=== PATIENT | female | born 2000 | race Two or more races ===

== ENCOUNTER 2025-04-27 11:33 | Outpatient (AMB) | payer BC, MEDICAID, SELFPAY ==
[2025-04-27 11:51] VITALS: BP 109/68; PULSE 76; RESP 16; TEMP 36.6; O2SAT 98; BMI 27.5
--- NOTE | 2025-04-27 11:51 | OBCLNT_ITS ---
Vital Signs 04/27/25 11:51 Height 1.68 m Height Method Stated Weight 77.337 kg Weight Measurement Method Standing Scale BMI 27.5 BP 109/68 Blood Pressure Source Automatic Cuff Blood Pressure Location Left Upper Arm Position Sitting Respiration 16 Pulse 76 Pulse Source Monitor Temp 97.8 F Temp Source Oral Pulse Oximetry (%) 98 Oxygen Delivery Method Room Air Allergies/Home Meds Allergies & Medications Allergies No Known Allergies Allergy (Verified 04/27/25 11:55) Medication Reconciliation azelaic acid 20 % topical cream 1 applic topical BID 30 days #50 grams 04/27/25 [Rx] Intake Visit Data Collection New Patient or Established: Established Patient (seen at [facility] within 3 years) Reason for Visit:: INITIAL CARE Seen by Clinical Staff ONLY (RN/MA): No 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 1. Little interest or pleasure in doing things: not at all 2. Feeling down, depressed, or hopeless: not at all Total score: 0 PHQ-9 3. Trouble falling or staying asleep, or sleeping too much: Not at all 4. Feeling tired or having little energy: Not at all 5. Poor appetite or overeating: Not at all 6. Feeling bad about yourself - or that you are a failure or have let yourself or your family down: Not at all 7. Trouble concentrating on things, such as reading the newspaper or watching television: Not at all 8. Moving or speaking so slowly that other people could have noticed? - Or the opposite - being so fidgety or restless that you have been moving around a lot more than usual: not at all 9. Thoughts that you would be better off or of hurting yourself in some way: Not at all Total score: 0 Source: Developed by Drs. Misael Bustos, Doris Parikh, Mahesh Plascencia and colleagues, with an educational rosina from [employer]. 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 Feel Safe at Home: Yes History of Present Illness HPI Narrative Patient is a 24-year-old [id number] at 8 weeks and 5 days gestation, presenting for her first obstetric visit for a confirmed . She is currently 8 weeks and 5 days gestation based on her last menstrual period of February 18, with an estimated due date of November 25. The patient reports experiencing mild cramps, which she describes as normal and not accompanied by bleeding or spotting. She denies morning sickness but mentions having diarrhea. She had a first-trimester ultrasound on April 18, which showed a gestational age of 7 weeks and 3 days at that time. Regarding medications, she was taking tretinoin for acne when she conceived but stopped upon learning of her . She also mentions being prescribed spironolactone for acne but never took it. She experienced a yeast infection early in and opted for [id number] treatment instead of prescribed medication. The patient reports skin purging after starting vitamins, which resolved when she switched to [id number] prenatals. She is currently using azelaic acid for acne, prescribed by a car body mechanic. She expresses interest in genetic testing, particularly due to her partner's half-sister having Down syndrome. She also inquires about gender determination through blood testing. 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 [employer]: Past Medical History Past Medical History: No Hx Neurological Disorders, No Hx Cardiac Disorders, No Hx Gastrointestinal Disorders, No Hx Renal Disease, No Hx Diabetes Mellitus Type 1 and No Hx Diabetes Mellitus Type 2 OB Initial Visit OB Flowsheet OB Flowsheet Initial Weight: Not Recorded Date -?-?-?-?-?-?-?-?-?-?-?-?- EGA Weight BP Alb Glu CTX Pres Fundal ht FHR Mov Dilation Station Effacement Hx Notes Visit Note 04/27/25 -?-?-?-?-?-?-?-?-?-?-?-?- 9w 5d 77.337 kg 109/68 8w5d IUP with FHR 175, mild cramping without bleeding, diarrhea likely from progesterone/vitamins; remote topical tretinoin use, low risk; acne managed with azelaic acid. Plan: Order labs, NIPT, anatomy scan referral, follow up in 1?2w, continue vitamins, reassure re: tretinoin, prescribe adapalene for acne. Menstrual History Menstrual reliability: definite Flow: normal Menstrual regularity: regular Monthly: Yes Age at menarche: 13 On control pills at conception: No Associated symptoms (LMP): Reports nausea, fatigue and breast tenderness OB History : 1 # of Living Children: 0 Infection History & Risk Evaluation History of STDs: none Genetic Screening & History Genetic Screening/Teratology Counseling - Includes patient, baby's father, or anyone in either family with: 1. Patient's age 35 years or older as of estimated date of delivery: No 2. Thalassemia (Barbadian, Macanese, Mediterranean, or Background); MCV less than 80: No 3. Neural Tube Defect (Meningomyelocele, Spina Bifida, or Anencephaly): No 4. Congenital Heart Defect: No 5. Down Syndrome: No 6. Tyrell-Sachs (Ashkenazi Quaker, Cajun, [place]): No 7. Trinidad Disease (Ashkenazi Quaker): No 8. Familial Dysautonomia (Ashkenazi Quaker): No 9. Sickle Cell Disease or Trait (): No 10. Hemophilia or other blood disorders: No 11. Muscular Dystrophy: No 12. Cystic Fibrosis: No 13. Buffalo's Chorea: No 14. Mental Retardation/Autism: No 15. Other inherited genetic or chromosomal disorder: No 16. Maternal Metabolic Disorder (EG,TYPE 1 Diabetes, PKU): No 17. Patient or baby's father had a child with defects not listed above: No 18. Recurrent loss or a stillbirth: No 19. Medications (including supplements, vitamins, herbs or otc drugs)/illicit/recreational drugs/alcohol since last menstrual period: No 20. Any other: No Infection History 1. Live with someone with TB or exposed to TB: No 2. Rash or viral illness since last menstrual period: No 3. Hepatitis B,C: No Other (see comments) Source: [employer] Review of Systems Constitutional Constitutional: Reports fatigue Gastrointestinal Gastrointestinal: Reports nausea Endocrine Endocrine: Reports fatigue Exam General General Appearance: alert, in no apparent distress and healthy appearing Head Head exam: atraumatic Neck Neck exam: Present normal inspection and trachea midline Chest Chest inspection: Present normal inspection and symmetric chest wall rise External exam: Present normal external exam; Absent tenderness Neuro Neurological exam: Present oriented X3 Psych Psychiatric exam: Present normal affect and normal mood Office Procedures OB Clinic LOC & Office Proc's Nursing/Assessment Patient Status: Established Patient OB Clinic Nursing Assessment: Medication Reconciliation, Update PMH in EMR and Vital Signs OB Clinic Coordination of Care: Complex Care and Chronic Disease 1-5, Consent,records obtained, informed consent, Education Simp Pt/Fam, Lab and Imaging orders, Results/Orders obtained and Staff clarify orders Special Needs: Heart tones Established Patient Charge Established Patient Point Assignment: 135 Established Patient Point Charge: EP Level 4 (120-155) Assessment & Plan Diagnosis / Problem List (1) Uterine size date discrepancy: Status: Acute (2) Acne: Status: Acute (3) Dermatitis: Status: Acute (4) Teratogen exposure in , antepartum: Status: Acute (5) Supervision of high risk , unspecified, first trimester: Status: Acute
== END 2025-04-27 12:10 | disposition home or self-care (01) ==
LOC: HODSOBC 11:33
PROVIDERS: PCP Family Medicine; Referring Provider Family Medicine; Supervising Provider Obstetrics & Gynecology; Visit Provider Obstetrics & Gynecology
DX: O09.891 Supervision of other high risk pregnancies, first trimester (principal); O26.841 Uterine size-date discrepancy, first trimester; O99.711 Diseases of the skin and subcutaneous tissue complicating pregnancy, first trimester; L30.9 Dermatitis, unspecified; O35.5XX0 Maternal care for (suspected) damage to fetus by drugs, not applicable or unspecified; Z3A.09 9 weeks gestation of pregnancy
CPT/HCPCS: 99214; G0463

== ENCOUNTER → 2025-04-27 | Outpatient (CLI) | payer BC, MEDICAID, SELFPAY ==
--- NOTE | 2025-04-27 13:10 | XR_ITS ---
Examination: Complete OB ultrasound, less than 14 weeks, transabdominal Date and time of exam: April 27, 2025, 1317 hours INDICATIONS: Diagnosis size dates discrepancy Technique: Obstetrical ultrasound images less than 14 weeks performed via transabdominal imaging Findings: A normal shaped single intrauterine gestation is present in the uterus. CRL 2.1 cm corresponds to 8 weeks 5 day gestational age. Cardiac motion 180 bpm Right ovary 3.4 cm arterial flow. Left ovary 3.6 cm arterial flow 15 mm follicular cyst Ultrasonographic survey of visible and placental structures unremarkable. Amniotic fluid volume appears appropriate for this estimated gestational age. Impression: Viable intrauterine gestation 8 weeks 5 days.
== END | disposition home or self-care (01) ==
PROVIDERS: PCP Nurse Practitioner Family; Referring Provider Obstetrics & Gynecology; Visit Provider Obstetrics & Gynecology
DX: O26.849 Uterine size-date discrepancy, unspecified trimester (principal); Z3A.08 8 weeks gestation of pregnancy
CPT/HCPCS: 76801

== ENCOUNTER → 2025-04-27 | Outpatient (CLI) | payer BC, MEDICAID, SELFPAY ==
[2025-04-27 12:58] LABS: Collection Type, Urine Clean Catch
[2025-04-27 13:18] LABS: Basophils # (Auto) 0.1 Thou/mm3 (0.0-0.2); Basophils % (Auto) 0 % (0-2.5); Eosinophils # (Auto) 0.1 Thou/mm3 (0.0-0.5); Eosinophils % (Auto) 1 % (0-10); Hematocrit 40.1 % (36.0-46.0); Hemoglobin 14.4 g/dL (12.0-16.0); Immature Granulocytes Auto 0.07 Thou/mm3 (0.00-0.00); Lymphocytes # (Auto) 3.2 Thou/mm3 (1.0-4.8); Lymphocytes % (Auto) 21 % (10-50); Mean Corpuscular HGB Conc 35.9 g/dl (31.0-37.0); Mean Corpuscular Hemoglobin 31.2 pg (25.0-35.0); Mean Corpuscular Volume 87 fL (80-100); Monocytes # (Auto) 0.7 Thou/mm3 (0.0-0.8); Monocytes % (Auto) 5 % (0-12); Neutrophils # (Auto) 10.9 Thou/mm3 (1.8-7.7); Neutrophils % (Auto) 73 % (37-80); Nucleated Red Blood Cell # 0.00 Thou/mm3 (0.00-0.00); Nucleated Red Blood Cell % 0 /100 WBC (0); Platelet Count 258 Thou/mm3 (140-440); RDW Standard Deviation 41.2 fL (36.4-46.3); Red Blood Count 4.62 Miln/mm3 (4.00-5.20); White Blood Count 15.0 Thou/mm3 (3.6-11.0)
[2025-04-27 13:21] LABS: Bilirubin,Urine Negative (Negative); Blood,Urine Negative (Negative); Clarity,Urine Clear (Clear/Hazy); Color,Urine Yellow (Lt Yel-Yel); Culture Indicated,Urine Not Indicated; Glucose, Urine Negative (Negative); Ketones,Urine 1+ (Negative); Leukocyte Esterase,Urine Negative (Negative); Nitrite,Urine Negative (Negative); PH,Urine 5.5 (5.0-7.0); Protein,Urine Negative (Neg - Trace); RBC,Urine 3 /hpf (0-3); Specific Gravity,Urine 1.027 (1.001-1.035); Squamous Epithelial Cell,Urine 1 /hpf (0-5); Urobilinogen,Urine Negative mg/dL (0.0-1.0); WBC,Urine 1 /hpf (0-5)
[2025-04-27 13:25] LABS: Glucose Estimated Average 80 mg/dL (80-131); Hemoglobin A1C 4.4 % Hgb (4.8-6.0)
[2025-04-27 13:45] LABS: Syphilis Nonreactive (Nonreactive)
[2025-04-27 14:06] LABS: Hepatitis B Surface Antigen Non Reactive (Non React); Hepatitis C Antibody Non Reactive (Non React); Rubella, IgG Antibody Reactive (Immune)
[2025-04-27 15:33] LABS: HIV (1&2) Antibody Rapid Non-Reactive
[2025-04-27 16:20] LABS: Chlamydia trachomatis PCR Negative (Not Detect); Neisseria Gonorrhoeae DNA PCR Negative (Not Detect); Trichomonas Negative (Negative)
[2025-05-03 07:10] LABS: Varicella-Zoster IgG Ab* <1.00 S/CO
== END | disposition home or self-care (01) ==
PROVIDERS: PCP Nurse Practitioner Family; Referring Provider Obstetrics & Gynecology; Visit Provider Obstetrics & Gynecology
DX: O26.849 Uterine size-date discrepancy, unspecified trimester (principal); Z3A.00 Weeks of gestation of pregnancy not specified
CPT/HCPCS: 36415; 81001; 83036; 85025; 86703; 86762; 86780; 86787; 86803; 86850; 86900; 86901; 87340; 87491; 87591; 87661

== ENCOUNTER 2025-05-23 08:18 | Outpatient (AMB) | payer BC, MEDICAID, SELFPAY ==
--- NOTE | 2025-05-23 08:31 | OBCLNT_ITS ---
Vital Signs 05/23/25 08:36 Height 1.68 m Height Method Stated Weight 76.884 kg Weight Measurement Method Standing Scale BMI 27.2 BP 112/72 Blood Pressure Source Automatic Cuff Blood Pressure Location Left Upper Arm Position Sitting Respiration 16 Pulse 85 Pulse Source Monitor Temp 97.8 F Temp Source Oral Pulse Oximetry (%) 99 Oxygen Delivery Method Room Air Allergies/Home Meds Allergies & Medications Allergies No Known Allergies Allergy (Verified 05/23/25 08:37) Medication Reconciliation azelaic acid 20 % topical cream 1 applic topical BID 30 days #50 grams 04/27/25 [Rx Confirmed 05/23/25] Intake Visit Data Collection New Patient or Established: Established Patient (seen at 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 1. Little interest or pleasure in doing things: not at all 2. Feeling down, depressed, or hopeless: not at all Total score: 0 PHQ-9 3. Trouble falling or staying asleep, or sleeping too much: Not at all 4. Feeling tired or having little energy: Not at all 5. Poor appetite or overeating: Not at all 6. Feeling bad about yourself - or that you are a failure or have let yourself or your family down: Not at all 7. Trouble concentrating on things, such as reading the newspaper or watching television: Not at all 8. Moving or speaking so slowly that other people could have noticed? - Or the opposite - being so fidgety or restless that you have been moving around a lot more than usual: not at all 9. Thoughts that you would be better off or of hurting yourself in some way: Not at all Total score: 0 Source: Developed by Drs. Misael Bustos, Doris Parikh, Mahesh Plascencia and colleagues, with an educational rosina from [employer]. 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 Past Medical History: No Hx Neurological Disorders, No Hx Cardiac Disorders, No Hx Gastrointestinal Disorders, No Hx Renal Disease, No Hx Diabetes Mellitus Type 1 and No Hx Diabetes Mellitus Type 2 Care OB Visit Log OB Flowsheet Initial Weight: Not Recorded Date -?-?-?-?-?-?-?-?-?-?-?-?- EGA Weight BP Alb Glu CTX Pres Fundal ht FHR Mov Dilation Station Effacement Hx Notes Visit Note 04/27/25 -?-?-?-?-?-?-?-?-?-?-?-?- 9w 5d 77.337 kg 109/68 8w5d IUP with FHR 175, mild cramping without bleeding, diarrhea likely from progesterone/vitamins; remote topical tretinoin use, low risk; acne managed with azelaic acid. Plan: Order labs, NIPT, anatomy scan referral, follow up in 1?2w, continue vitamins, reassure re: tretinoin, prescribe adapalene for acne. 05/23/25 -?-?-?-?-?-?-?-?-?-?-?-?- 13w 3d 76.884 kg 112/72 absent 155 - Ilir Shahid presents for her 2nd visit at 13 weeks and 3 days gestation. - Patient reports improvement in nausea symptoms. - She denies any other significant sympt oms or concerns related to her . - Patient is taking supplements : - Calcium (200 mg daily) - Vitamin D - Magnesium - Glycine ([id number]) - No recent hospitalizations or ED visits reported. - Follow up in 4 weeks - Complete genetic testing (informed con sent signed) - Continue current supplements (calcium, vitamin D, magnesium) within recommended daily limits: - Calcium: not to exceed 1000mg/day - Vitamin D: not to exceed 5000 IU/day - Magnesium: glycine form is acceptabl e - Genetic test results expected in about a week NANETTE Calculator Estimated Delivery Date Method Current WG Current Estimate 11/25/25 LMP (Certain) 13w 4d Other Estimates 11/30/25 Ultrasound #1 12w 6d Notes Visit Date: 05/23/25 Last Updated by: Maynor Cheatham MD - panel: - RPR: Non-reactive - Gonorrhea: Negative - Chlamydia: Negative - Hepatitis B: Negative - Hepatitis C: Negative - HIV: Negative - Rubella: Immune - Trichomoniasis: Negative - Varicella antibody: Negative - Urinalysis: 1+ ketones - Hemoglobin A1c: 4.4% - CBC: - Hemoglobin: 14.4 g/dL - Platelets: 258 x10^3/?L - Ultrasound: - heart rate: 155 bpm - anatomy: Normal appearance of legs, body, hands, and head Assessment & Plan Diagnosis / Problem List (1) Supervision of high risk , unspecified, first trimester: Status: Acute (2) Teratogen exposure in , antepartum: Status: Acute Plan Problem List - , second trimester - Varicella susceptibility Assessment at 13 weeks and 3 days gestation presenting for second visit. heart rate 155 bpm with normal anatomy visualized on ultrasound. Patient reports resolution of nausea. labs show RPR non-reactive, gonorrhea and chlamydia negative, hepatitis B and C negative, HIV negative, rubella immune, trichomoniasis negative, and varicella antibody negative. Urinalysis revealed 1+ ketones. Hemoglobin A1c 4.4%. CBC shows hemoglobin 14.4 g/dL and platelets 258,000/?L. Genetic testing results pending. Plan - Follow up in 4 weeks - Complete genetic testing (informed consent signed) - Continue current supplements (calcium, vitamin D, magnesium) within recommended daily limits: - Calcium: not to exceed 1000mg/day - Vitamin D: not to exceed 5000 IU/day - Magnesium: glycine form is acceptable - Genetic test results expected in about a week This visit does not meet the criteria for the requested format. The patient is at 13 weeks and 3 days gestation, which is less than 20 weeks. Additionally, this is not an initial visit, as it is noted to be the 2nd visit. Therefore, the provided format is not applicable to this specific visit.
[2025-05-23 08:36] VITALS: BP 112/72; PULSE 85; RESP 16; TEMP 36.6; O2SAT 99; BMI 27.2
== END 2025-05-23 09:20 | disposition home or self-care (01) ==
LOC: HODSOBC 08:18
PROVIDERS: Supervising Provider Obstetrics & Gynecology; Visit Provider Obstetrics & Gynecology
DX: O09.891 Supervision of other high risk pregnancies, first trimester (principal); Z3A.13 13 weeks gestation of pregnancy; O9A.211 Injury, poisoning and certain other consequences of external causes complicating pregnancy, first trimester; T75.89XA Other specified effects of external causes, initial encounter; X58.XXXA Exposure to other specified factors, initial encounter
CPT/HCPCS: 99214; G0463

== ENCOUNTER 2025-07-06 11:03 | Outpatient (AMB) | payer BC, MEDICAID, SELFPAY ==
[2025-07-06 11:15] VITALS: BP 107/71; PULSE 101; RESP 20; TEMP 36.2; O2SAT 98; BMI 27.8
--- NOTE | 2025-07-06 11:15 | OBCLNT_ITS ---
Vital Signs 07/06/25 11:15 Height 1.68 m Height Method Stated Weight 78.642 kg Weight Measurement Method Standing Scale BMI 27.8 BP 107/71 Blood Pressure Source Automatic Cuff Blood Pressure Location Left Upper Arm Position Sitting Respiration 20 Pulse 101 H Pulse Source Monitor Temp 97.2 F Temp Source Oral Pulse Oximetry (%) 98 Oxygen Delivery Method Room Air Allergies/Home Meds Allergies & Medications Allergies No Known Allergies Allergy (Verified 07/06/25 11:17) Medication Reconciliation azelaic acid 20 % topical cream 1 applic topical BID 30 days #50 grams 04/27/25 [Rx Confirmed 07/06/25] Intake Visit Data Collection New Patient or Established: Established Patient (seen at [facility] within 3 years) Reason for Visit:: CARE Seen by Clinical Staff ONLY (RN/MA): No Culture Media Laboratory Assistant Required: No Do You Feel Safe at Home: Yes Authorities Contacted: N/A PCP or OBGYN visit in last 3 months: Yes Hx Now: Yes Are you currently on any form of Control: No Pain Present Currently: No Pain Scale Used: Gonsalez-Hernandes/Numerical Pain scale:: 0 Smoking Status Smoking Status: Never smoker Immunizations Flu Vaccine in the Last 12 Months: Yes Flu Vaccine Exclusion Criteria: Already Received Questionnaires Covid-19 Vaccine Questionnaire Has patient been vacinated for Covid-19 Have you been vacinated for Covid-19: Yes PHQ-9 PHQ-2 Over the last 2 weeks, how often have you been bothered by any of the following problems? 1. Little interest or pleasure in doing things: not at all 2. Feeling down, depressed, or hopeless: not at all Total score: 0 PHQ-9 3. Trouble falling or staying asleep, or sleeping too much: Not at all 4. Feeling tired or having little energy: Not at all 5. Poor appetite or overeating: Not at all 6. Feeling bad about yourself - or that you are a failure or have let yourself or your family down: Not at all 7. Trouble concentrating on things, such as reading the newspaper or watching television: Not at all 8. Moving or speaking so slowly that other people could have noticed? - Or the opposite - being so fidgety or restless that you have been moving around a lot more than usual: not at all 9. Thoughts that you would be better off or of hurting yourself in some way: Not at all Total score: 0 Source: Developed by Drs. Misael Bustos, Doris Parikh, Mahesh Plascencia and colleagues, with an educational rosina from [employer]. 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 Past Medical History: No Hx Neurological Disorders, No Hx Cardiac Disorders, No Hx Gastrointestinal Disorders, No Hx Renal Disease, No Hx Diabetes Mellitus Type 1 and No Hx Diabetes Mellitus Type 2 Care OB Visit Log OB Flowsheet Initial Weight: Not Recorded Date -?-?-?-?-?-?-?-?-?-?-?-?- EGA Weight BP Alb Glu CTX Pres Fundal ht FHR Mov Dilation Station Effacement Hx Notes Visit Note 04/27/25 -?-?-?-?-?-?-?-?-?-?-?-?- 9w 5d 77.337 kg 109/68 8w5d IUP with FHR 175, mild cramping without bleeding, diarrhea likely from progesterone/vitamins; remote topical tretinoin use, low risk; acne managed with azelaic acid. Plan: Order labs, NIPT, anatomy scan referral, follow up in 1?2w, continue vitamins, reassure re: tretinoin, prescribe adapalene for acne. 05/23/25 -?-?-?-?-?-?-?-?-?-?-?-?- 13w 3d 76.884 kg 112/72 absent 155 - Ilir Shahid presents for her 2nd visit at 13 weeks and 3 days gestation. - Patient reports improvement in nausea symptoms. - She denies any other significant sympt oms or concerns related to her . - Patient is taking supplements : - Calcium (200 mg daily) - Vitamin D - Magnesium - Glycine ([id number]) - No recent hospitalizations or ED visits reported. - Follow up in 4 weeks - Complete genetic testing (informed con sent signed) - Continue current supplements (calcium, vitamin D, magnesium) within recommended daily limits: - Calcium: not to exceed 1000mg/day - Vitamin D: not to exceed 5000 IU/day - Magnesium: glycine form is acceptabl e - Genetic test results expected in about a week 07/06/25 -?-?-?-?-?-?-?-?-?-?-?-?- 19w 5d 78.642 kg 107/71 absent unknown 19 145 active Feels tired. Complains of increased back pain patient has a application for the disability placard. Reports light movement. Denies leaking bleeding or contractions aFP today. Dee ent has an appointment with Dr. Hazel July 18. Discussed SAB precautions. Continue prenatals. Comfort measures for back pain and advised maternity girdle and I filled out her application for disability placard and return in 4 weeks OB check NANETTE Calculator Estimated Delivery Date Method Current WG Current Estimate 11/25/25 LMP (Certain) 19w 5d Other Estimates 11/30/25 Ultrasound #1 19w 0d Notes Visit Date: 07/06/25 Last Updated by: Rosita Patel CNM NIPT-/carrier- Patient is RH negative/ABS-.: Give Rhogam at 28 week HBSAG-,HC-,HIV-, GC/CT-, Rub imm, RPR::NR Visit Date: 05/23/25 Last Updated by: Maynor Cheatham MD - panel: - RPR: Non-reactive - Gonorrhea: Negative - Chlamydia: Negative - Hepatitis B: Negative - Hepatitis C: Negative - HIV: Negative - Rubella: Immune - Trichomoniasis: Negative - Varicella antibody: Negative - Urinalysis: 1+ ketones - Hemoglobin A1c: 4.4% - CBC: - Hemoglobin: 14.4 g/dL - Platelets: 258 x10^3/?L - Ultrasound: - heart rate: 155 bpm - anatomy: Normal appearance of legs, body, hands, and head Office Procedures OBC Clinic LOC & Office Proc's Nursing/Assessment Patient Status: Established Patient OB Clinic Nursing Assessment: Medication Reconciliation, Update PMH in EMR and Vital Signs OB Clinic Coordination of Care: Complex Care and Chronic Disease 1-5, Consent,records obtained, informed consent, Education Simp Pt/Fam, 1 Ins Authorization, Lab and Imaging orders, Results/Orders obtained and Staff clarify orders Special Needs: Heart tones Established Patient Charge Established Patient Point Assignment: 150 Established Patient Point Charge: EP Level 4 (120-155) Assessment & Plan Diagnosis / Problem List (1) Encounter for supervision of high risk in second trimester, antepartum: Status: Acute Plan Discussed labs. Discussed Rh-. RhoGAM at 28 weeks. Follow-up with Dr. Hazel on July 18 for anatomy scan. Discussed labor precautions. Return in 4 weeks OB check. Comfort measures for backache and suggested a maternity girdle Additional Plan Follow Up: 4 Weeks (obc)
== END 2025-07-06 11:36 | disposition home or self-care (01) ==
LOC: HODSOBC 11:03
PROVIDERS: Supervising Provider Advanced Practice Midwife; Visit Provider Advanced Practice Midwife
DX: O09.892 Supervision of other high risk pregnancies, second trimester (principal); O99.891 Other specified diseases and conditions complicating pregnancy; M54.9 Dorsalgia, unspecified; Z3A.19 19 weeks gestation of pregnancy; Z67.91 Unspecified blood type, Rh negative
CPT/HCPCS: 99214; G0463